=== PATIENT | female | born 1955 | race Caucasian/White ===

== ENCOUNTER 2017-05-16 20:36 | Emergency (ER) | payer OTHER ==
[~2017-05-16] VITALS: Ht 160 cm; Wt 104.3 kg
[2017-05-16 20:47] VITALS: BP 187/83
--- NOTE | 2017-05-16 20:58 | NUR ---
PATIENT TAKEN TO BED 6
--- NOTE | 2017-05-16 21:12 | NUR ---
62 Y/O FF W/C/O PAIN WITH URINATION, PELVIC AND LOW BACK PAIN.
[2017-05-16] MEDS: NACL 0.9% 1,000 ML IV ONE (21:34)
[2017-05-16] MEDS: ONDANSETRON 4 MG/2 ML VIAL IVP ONE (21:35)
[2017-05-16] MEDS: KETOROLAC 30 MG/ML VIAL IVP ONE (21:35)
[2017-05-16 21:43] LABS: BASOPHILS # (AUTO) 0.3 K/uL (0.00-0.22); BASOPHILS % (AUTO) 2.3 % (0.0-2.0); EOSINOPHILS # (AUTO) 0.5 K/uL (0-0.4); EOSINOPHILS % (AUTO) 4.1 % (0.0-4.0); HEMATOCRIT 43.5 % (36-48); HEMOGLOBIN 14.1 g/dL (12.0-16.0); LYMPHOCYTES # (AUTO) 2.2 K/uL (2.5-16.5); LYMPHOCYTES % (AUTO) 17.4 % (20.5-51.1); MEAN CORPUSCULAR HEMOGLOBIN 28 pg (27-31); MEAN CORPUSCULAR HGB CONC 32 g/dL (33-37); MEAN CORPUSCULAR VOLUME 86 fL (80-94); MONOCYTES # (AUTO) 0.5 K/uL (0.8-1.0); MONOCYTES % (AUTO) 4.3 % (1.7-9.3); NEUTROPHILS # (AUTO) 9.2 K/uL (1.8-7.7); NEUTROPHILS % (AUTO) 71.9 % (42.2-75.2); PLATELET COUNT (AUTO) 178 K/uL (140-450); RED BLOOD CELL COUNT(AUTO) 5.07 MIL/uL (4.20-5.40); RED CELL DISTRIBUTION WIDTH 13.4 % (11.6-13.7); WHITE BLOOD COUNT (AUTO) 12.7 K/uL (4.8-10.8)
[2017-05-16 21:49] LABS: ANION GAP 12.3 (8-16); CALCIUM 9.1 mg/dL (8.5-10.1); CARBON DIOXIDE 29.8 mmol/L (21-32); POTASSIUM 4.1 mmol/L (3.5-5.1)
--- NOTE | 2017-05-16 21:50 | NUR ---
PT RESTING IN BED AWATING FOR RESULTS, NO S/S OF DISTRESS NOTED AT THE MOMENT. WILL CONT TO MONITOR.
[2017-05-16 21:55] LABS: ALBUMIN 3.7 g/dL (3.4-5.0); TOTAL BILIRUBIN 0.7 mg/dL (0.0-1.0); TOTAL PROTEIN, SERUM 7.3 g/dL (6.4-8.2)
[2017-05-16] MEDS: LEVOFLOXACIN 500 MG TAB PO ONE (22:18)
[2017-05-16] MEDS: metroNIDAZOLE 500 MG TAB PO ONE (22:19)
[2017-05-16 22:35] VITALS: BP 126/67
--- NOTE | 2017-05-16 22:35 | NUR ---
Patient discharged with v/s stable. Written and verbal after care instructions given and explained. Patient alert, oriented and verbalized understanding of instructions. Ambulatory with steady gait. All questions addressed prior to discharge. ID band removed. Patient advised to follow up with PMD OR RETURN TO ER IF CONDITION WORSENS. Rx of TYLENOL WITH CODEINE, FLAGYL, AND CIPRO given. Patient educated on indication of medication including possible reaction and side effects. Opportunity to ask questions provided and answered.
== END 2017-05-16 22:35 | disposition home or self-care (01) ==
LOC: MED 20:36
DX: K57.92 Diverticulitis of intestine, part unspecified, without perforation or abscess without bleeding (principal); E11.9 Type 2 diabetes mellitus without complications; I10 Essential (primary) hypertension; Z88.0 Allergy status to penicillin; Z90.89 Acquired absence of other organs
CPT/HCPCS: 36415; 74176; 80053; 85025; 96361; 96374; 96375; 99285; J1885; J2405; J7030; 81002

== ENCOUNTER 2019-08-11 05:32 | Emergency (ER) | payer OTHER ==
[~2019-08-11] VITALS: Ht 160 cm; Wt 95.3 kg
[2019-08-11 05:43] VITALS: BP 151/73
[2019-08-11] MEDS ORDERED: KETOROLAC 60 MG/2 ML VIAL IM ONE (06:15)
[2019-08-11] MEDS ORDERED: ONDANSETRON 4 MG ODT PO ONE (06:15)
--- NOTE | 2019-08-11 06:15 | NUR ---
DR. GILBERT EVALUATING AT BEDSIDE.
--- NOTE | 2019-08-11 06:25 | NUR ---
PT RECEIVED 60 MG IM TORADOL FOR 8/10 PAIN. WILL REASSESS.
--- NOTE | 2019-08-11 06:31 | NUR ---
C/O 10 BURNING EPIGASTRIC PAIN THAT COMES AND GOES ACCOMPANIED BY NAUSEA, VOMITING X 3, DIARRHEA X 7 X 2 DAYS. PMH-- DIVERTICULITIS, DM, HTN, HYPERLIPIDEMIA
--- NOTE | 2019-08-11 07:04 | NUR ---
PT REPORTS RELIEF IN PAIN; 0/10 PAIN.
[2019-08-11 07:05] VITALS: BP 121/69
--- NOTE | 2019-08-11 07:06 | NUR ---
D Patient discharged with v/s stable. Written and verbal after care instructions given and explained. Patient alert, oriented and verbalized understanding of instructions. Ambulatory with steady gait. All questions addressed prior to discharge. ID band removed. Patient advised to follow up with PMD. Rx of MOTRIN, CIPRO, AND ZOFRAN given. Patient educated on indication of medication including possible reaction and side effects. Opportunity to ask questions provided and answered.
== END 2019-08-11 07:03 | disposition home or self-care (01) ==
LOC: MED 05:32
DX: R11.2 Nausea with vomiting, unspecified (principal); R19.7 Diarrhea, unspecified; N39.0 Urinary tract infection, site not specified; E11.9 Type 2 diabetes mellitus without complications; I10 Essential (primary) hypertension; Z90.49 Acquired absence of other specified parts of digestive tract; Z98.890 Other specified postprocedural states; Z88.0 Allergy status to penicillin
CPT/HCPCS: 81002; 96372; 99283; J1885; Q0162